=== PATIENT | female | born 1980 | race Caucasian/White ===

== ENCOUNTER → 2023-01-23 09:27 | Outpatient (BNVA) | payer MEDICAID, SELFPAY | PROVIDERS: PCP Family Medicine; Visit Provider Family Medicine | DX: R10.9 Unspecified abdominal pain (principal); F41.9 Anxiety disorder, unspecified; R20.3 Hyperesthesia; F17.200 Nicotine dependence, unspecified, uncomplicated; Z71.6 Tobacco abuse counseling; F12.90 Cannabis use, unspecified, uncomplicated | CPT/HCPCS: 80053; 80061; 81000; 84439; 84443; 85025 ==

== ENCOUNTER 2023-02-26 12:58 | Outpatient (CLI) | payer MEDICAID, SELFPAY ==
--- NOTE | 2023-02-26 13:00 | US_ITS ---
WS: [id number] Gallbladder right upper quadrant ultrasound, 02/26/2023 Clinical Data: RUQ pain, elevated ALK Comparison: None. Findings: The gallbladder shows no sludge or stone. The wall measures 0.3 cm with no pericholecystic fluid. The common bile duct is 0.3 cm and there are no intrahepatic ductal abnormalities. Liver shows no cysts, masses or dilated intrahepatic ducts. The pancreas is not obscured by overlying bowel gas and no cyst, pseudocyst, or evidence of pancreati tis is noted. Right kidney measures 9.9 cm and no cyst, masses or hydronephrosis can be seen. The aorta and inferior vena cava show no vascular abnormalities. US/US gall bladder [id number] Impression: Negative gallbladder and right upper quadrant ultrasound.
== END 2023-02-26 12:59 | disposition home or self-care (01) ==
LOC: RAD 13:03
PROVIDERS: PCP Family Medicine; Visit Provider Family Medicine
DX: R10.9 Unspecified abdominal pain (principal)
CPT/HCPCS: 76705

== ENCOUNTER 2024-12-23 13:29 | Outpatient (CLI) | payer MEDICAID, SELFPAY ==
--- NOTE | 2024-12-23 13:30 | MM_ITS ---
WS: [id number] BILATERAL 3D TOMOSYNTHESIS DIGITAL DIAGNOSTIC MAMMOGRAPHY WITH CAD CLINICAL INFORMATION: breats pain and mass on RIGHT side HISTORY: RIGHT breast lump COMPARISON: Baseline TECHNIQUE: Bilateral CC, MLO, and ML views. FINDINGS: The breasts are composed of heterogeneous fibroglandular density, which can limit the detection of small underlying mass lesions. Palpable marker upper outer RIGHT breast posteriorly. Dense underlying parenchymal tissue. Suggestion of an underlying ovoid nodule measuring 8 mm. Ultrasound of this area is pending. ULTRASOUND BREAST RIGHT TECHNIQUE: Ultrasound right breast focused area of concern. CLINICAL INFORMATION: breats pain and mass on RIGHT side FINDINGS: Ultrasound RIGHT breast in the area of concern 9 o'clock position 4 cm from the nipple. There is a complex cystic lesion in the area of concern measuring approximately 1.0 x 0.6 x 1.0 cm with a few internal septations and a small amount of internal debris. Small amount of surrounding capsular thickening. No internal vascularity. This is probably benign. Recommend 6-month follow-up to confirm stability. MM/MM diag tomosynthesis [id number] IMPRESSION: DENSITY: The breasts are heterogeneously dense, which may obscure small masses. BI-RADS: 3 - Probably Benign FOLLOW UP: 6 Month Follow-up Recommend 6-month RIGHT breast diagnostic mammography and ultrasound.
--- NOTE | 2024-12-23 13:35 | US_ITS ---
WS: [id number] BILATERAL 3D TOMOSYNTHESIS DIGITAL DIAGNOSTIC MAMMOGRAPHY WITH CAD CLINICAL INFORMATION: breats pain and mass on RIGHT side HISTORY: RIGHT breast lump COMPARISON: Baseline TECHNIQUE: Bilateral CC, MLO, and ML views. FINDINGS: The breasts are composed of heterogeneous fibroglandular density, which can limit the detection of small underlying mass lesions. Palpable marker upper outer RIGHT breast posteriorly. Dense underlying parenchymal tissue. Suggestion of an underlying ovoid nodule measuring 8 mm. Ultrasound of this area is pending. ULTRASOUND BREAST RIGHT TECHNIQUE: Ultrasound right breast focused area of concern. CLINICAL INFORMATION: breats pain and mass on RIGHT side FINDINGS: Ultrasound RIGHT breast in the area of concern 9 o'clock position 4 cm from the nipple. There is a complex cystic lesion in the area of concern measuring approximately 1.0 x 0.6 x 1.0 cm with a few internal septations and a small amount of internal debris. Small amount of surrounding capsular thickening. No internal vascularity. This is probably benign. Recommend 6-month follow-up to confirm stability. US/US breast RT limited* [id number] IMPRESSION: DENSITY: The breasts are heterogeneously dense, which may obscure small masses. BI-RADS: 3 - Probably Benign FOLLOW UP: 6 Month Follow-up Recommend 6-month RIGHT breast diagnostic mammography and ultrasound.
== END 2024-12-23 13:30 | disposition home or self-care (01) ==
LOC: RAD 13:29
PROVIDERS: PCP Family Medicine; Visit Provider Family Medicine
DX: N64.4 Mastodynia (principal); N63.10 Unspecified lump in the right breast, unspecified quadrant; R92.331 Mammographic heterogeneous density, right breast; N63.15 Unspecified lump in the right breast, overlapping quadrants
CPT/HCPCS: 76642; 77062; G0279

== ENCOUNTER 2025-06-23 08:15 | Outpatient (CLI) | payer MEDICAID, SELFPAY ==
--- NOTE | 2025-06-23 08:23 | US_ITS ---
WS: [id number] RIGHT 3D TOMOSYNTHESIS DIGITAL MAMMOGRAPHY WITH CAD CLINICAL INFORMATION: breast mass HISTORY: 6-month follow-up RIGHT breast lump COMPARISON: 12/23/2024 TECHNIQUE: 3 views of the right breast were obtained. FINDINGS: The right breast is composed of heterogeneous fibroglandular density tissue, which can limit the detection of small underlying mass lesions. Palpable marker upper outer RIGHT breast posteriorly. Dense underlying parenchymal tissue. Similar-appearing ovoid nodule measuring 8 mm. Ultrasound described below. ULTRASOUND BREAST RIGHT TECHNIQUE: Ultrasound right breast focused area of concern. CLINICAL INFORMATION: breast mass FINDINGS: Ultrasound RIGHT breast in the area of concern 9 o'clock position 4 cm from the nipple. Persistent hypoechoic ovoid nodule with more internal echogenicity today. This may represent a dense complex semisolid cyst or fibroadenoma in a patient this age. Recommend further evaluation with ultrasound-guided biopsy for definitive diagnosis considering persistence. Today this measures approximately 8 x 8 x 5 mm US/US breast RT limited* [id number] IMPRESSION: DENSITY: The breasts are heterogeneously dense, which may obscure small masses. BI-RADS: 4 - Suspicious Finding - Biopsy Should Be Considered FOLLOW UP: US Guided Biopsy Recommended Recommend ultrasound-guided biopsy of the persistent ovoid nodule for definitiv e diagnosis considering persistence and used for palpable nature.
--- NOTE | 2025-06-23 08:30 | MM_ITS ---
WS: [id number] RIGHT 3D TOMOSYNTHESIS DIGITAL MAMMOGRAPHY WITH CAD CLINICAL INFORMATION: breast mass HISTORY: 6-month follow-up RIGHT breast lump COMPARISON: 12/23/2024 TECHNIQUE: 3 views of the right breast were obtained. FINDINGS: The right breast is composed of heterogeneous fibroglandular density tissue, which can limit the detection of small underlying mass lesions. Palpable marker upper outer RIGHT breast posteriorly. Dense underlying parenchymal tissue. Similar-appearing ovoid nodule measuring 8 mm. Ultrasound described below. ULTRASOUND BREAST RIGHT TECHNIQUE: Ultrasound right breast focused area of concern. CLINICAL INFORMATION: breast mass FINDINGS: Ultrasound RIGHT breast in the area of concern 9 o'clock position 4 cm from the nipple. Persistent hypoechoic ovoid nodule with more internal echogenicity today. This may represent a dense complex semisolid cyst or fibroadenoma in a patient this age. Recommend further evaluation with ultrasound-guided biopsy for definitive diagnosis considering persistence. Today this measures approximately 8 x 8 x 5 mm MM/MM diag RT tomosynthesis [id number] IMPRESSION: DENSITY: The breasts are heterogeneously dense, which may obscure small masses. BI-RADS: 4 - Suspicious Finding - Biopsy Should Be Considered FOLLOW UP: US Guided Biopsy Recommended Recommend ultrasound-guided biopsy of the persistent ovoid nodule for definitiv e diagnosis considering persistence and used for palpable nature.
== END 2025-06-23 08:16 | disposition home or self-care (01) ==
LOC: RAD 08:17
PROVIDERS: PCP Family Medicine; Visit Provider Family Medicine
DX: N63.11 Unspecified lump in the right breast, upper outer quadrant (principal); R92.333 Mammographic heterogeneous density, bilateral breasts
CPT/HCPCS: 76642; 77061; G0279

== ENCOUNTER 2025-06-24 06:19 | Emergency (ER) | payer MEDICAID, SELFPAY ==
[2025-06-24 06:22] VITALS: BP 147/85; PULSE 87; RESP 19; TEMP 36.5; O2SAT 96; BMI 25.7
--- NOTE | 2025-06-24 06:22 | ECG_ITS ---
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 Measurements Intervals [place] Rate: 87 P: 78 MT: 120 QRS: 78 QRSD: 85 T: 64 QT: 361 QTc: 437 Interpretive Statements SINUS RHYTHM WITH SINUS ARRHYTHMIA No previous ECG available for comparison Electronically Signed On 06-24-2025 22:39:35 CDT by Frankie Harper M.D. [id number]
--- NOTE | 2025-06-24 06:53 | XR_ITS ---
WS: [id number] Exam: XR chest 1V portable [id number] Date/Time of Exam: 06/24/2025 6:59 AM Reason For Exam: chest pain No priors. Subsegmental atelectasis along the region of the lingula. The lungs are otherwise clear. No pneumothorax. No pleural effusion. Normal cardiomediastinal silhouette. Bony structures are intact. XR/XR chest 1V portable [id number] IMPRESSION: 1. Subsegmental atelectasis in the region of the lingula. 2. No acute process noted.
[2025-06-24 06:54] VITALS: PULSE 72; RESP 21; O2SAT 96
[2025-06-24 06:59] LABS: Hematocrit 43.3 % (36-47); Hemoglobin 14.80 g/dL (11.27-16.99); Mean Corpuscular HGB Conc 34.2 g/dL (30-55); Mean Corpuscular Hemoglobin 32.7 pg (27-33); Mean Corpuscular Volume 95.6 fl (85-98); Nucleated Red Blood Cells % 0 %; Platelet Count 294 10^3/cmm (157-399); Red Blood Count 4.53 10^6/uL (3.85-5.65); White Blood Count 17.53 10^3/uL (3.29-11.43)
--- NOTE | 2025-06-24 07:03 | W.ED.CHESTPA ---
HPI - Chest Pain General: Chief Complaint: Chest Pain Stated Complaint: cp / sob Time Seen by Provider: 06/24/25 06:52 History of Present Illness: 45-year-old female presents emergency room complaint of left-sided chest pain is worse when she takes a deep breath. She describes the stabbing sensation between her clavicle and her scapula. When she presses on the left side of her lower ribs she is able to alleviate some of the pain as she takes a deep breath. Is not associated with exertion. She recently has had a nonproductive cough. No vomiting no diarrhea no abdominal pain Associated symptoms: Reports dyspnea; Deny abdominal pain or fever(s) Related Data Home Medications ?Medication ?Instructions ?Recorded ?Confirmed cetirizine 10 mg capsule (Zyrtec) 10 mg PO DAILY PRN allergies 01/23/23 06/24/25 pseudoephedrine HCl 15 mg/5 mL 30 mg PO Q4H PRN Congestion 06/24/25 06/24/25 oral liquid venlafaxine 75 mg capsule,extended 75 mg PO QAM 06/24/25 06/24/25 release 24 hr Previous Rx's ?Medication ?Instructions ?Recorded diclofenac sodium 75 mg 75 mg PO Q12H PRN pain #20 tabs 06/24/25 tablet,delayed release doxycycline hyclate 100 mg capsule 100 mg PO BID 10 days #20 caps 06/24/25 Allergies Allergy/AdvReac Type Severity Reaction Status Date / Time No Known Allergies Allergy Verified 04/07/25 10:10 Review of Systems Const: Denies: fever(s) or chills Card: Reports: chest pain Resp: Reports: dyspnea, non-productive cough and pain on inspiration GI: Denies: abdominal pain : Denies: dysuria, urinary frequency or urinary urgency Musc: Denies: neck pain or back pain Skin/Breast: Denies: rash PFSH ED PFSH: Medical History URI with cough and congestion Seasonal allergies Anxiety History of spinal fracture C4-5 Encounter for Essure implantation Placed in 2011 Family History Father Cancer esophageal Grandmother Cancer maternal-colon Grandfather Cancer maternal-prostate Grandfather Cancer paternal-skin Other Diabetes Hypertension Lung disease Psychiatric illness Denies family history of CAD (coronary artery disease) Clotting disorder Dementia Hyperlipidemia Chronic kidney disease (CKD) Anesthesia complication Bleeding disorder Stroke Social History Smoking and tobacco/nicotine status: current every day tobacco/nicotine user cigarettes Packs smoked per day: 1 Alcohol intake: current Alcohol intake frequency: few times a week Substance/Drug Use: current Substance/Drug use frequency: daily Other substance/drug use details: a few hits/day. Lives independently: Yes Marital status: Number of children: 4 Current occupational status: employed Current occupation: self employed Special kristian needs: No Agree to transfusion: Yes Physical Exam Const: GENERAL APPEARANCE: cooperative ORIENTATION/CONSCIOUSNESS: Yes awake, Yes oriented to person, Yes oriented to place and Yes oriented to time HENMT: COMMON NORMALS: normocephalic, atraumatic and hearing grossly normal bilaterally HEAD & SCALP: normocephalic and atraumatic Resp: COMMON NORMALS: normal respiratory effort, No retractions, No use of accessory muscles and clear to auscultation bilaterally AUSCULTATION: clear to auscultation bilaterally Cardio: COMMON NORMALS: regular rate, regular rhythm and No murmurs present (Cardio) RATE: regular rate RHYTHM: regular rhythm GI: COMMON NORMALS: Soft to palpation and No hepatosplenomegaly present AUSCULTATION: Yes normoactive bowel sounds PALPATION: Yes Soft to palpation, No Tenderness to palpation present (GI), No Guarding due to palpation present (GI) and Yes No hepatosplenomegaly present Extremity: COMMON NORMALS: normal to inspection, capillary refill normal, no clubbing, cyanosis or edema, no calf tenderness and no pedal edema Neuro: SENSORIUM/ORIENTATION: Yes oriented to person, Yes oriented to place and Yes oriented to time Skin: COMMON NORMALS: no rashes or lesions noted GENERAL SKIN EXAM: no rashes or lesions noted Course Vital Signs: Vital signs: Vital Signs Temperature 97.7 F 06/24/25 06:22 Pulse Rate 64 06/24/25 08:22 Respiratory Rate 21 H 06/24/25 06:54 Blood Pressure 148/87 06/24/25 07:28 Pulse Oximetry 97 06/24/25 08:22 Oxygen Delivery Me thod Room Air 06/24/25 08:22 MDM - Chest Pain Medical Decision Making Pain relieved with Toradol. Chest x-ray questionable atelectasis suspected may be a pneumonia based on her clinical presenting symptoms we will go ahead and put her on doxycycline also give her diclofenac to use as needed she says her pain is completely resolved now cardiac enzymes and EKG were unremarkable. Medical Records I reviewed the patient's medical records. Lab Data I reviewed the patient's lab results. 06/24/25 06:30 06/24/25 06:30 Radiology Impressions Chest X-Ray 06/24/25 06:53 IMPRESSION: 1. Subsegmental atelectasis in the region of the lingula. 2. No acute process noted. Laboratory Results WBC 17.53 10^3/uL (3.29-11.43) H 06/24/25 06:30 RBC 4.53 10^6/uL (3.85-5.65) 06/24/25 06:30 Hgb 14.80 g/dL (11.27-16.99) 06/24/25 06:30 Hct 43.3 % (36-47) 06/24/25 06:30 MCV 95.6 fl (85-98) 06/24/25 06:30 MCH 32.7 pg (27-33) 06/24/25 06:30 MCHC 34.2 g/dL (30-55) 06/24/25 06:30 RDW 12.9 % (12.1-15.1) 06/24/25 06:30 Plt Count 294 10^3/cmm (157-399) 06/24/25 06:30 MPV 9.1 fL (7.4-10.4) 06/24/25 06:30 Neut % (Auto) 76.8 % 06/24/25 06:30 Lymph % (Auto) 15.1 % 06/24/25 06:30 [place] % (Auto) 6.2 % 06/24/25 06:30 Eos % (Auto) 1.0 % 06/24/25 06:30 Baso % (Auto) 0.5 % 06/24/25 06:30 Neut # (Auto) 13.48 10^3/uL (1.8-7.7) H 06/24/25 06:30 Lymph # (Auto) 2.6 10^3/uL (0.8-4.8) 06/24/25 06:30 [place] # (Auto) 1.1 10^3/uL (0.2-0.9) H 06/24/25 06:30 Eos # (Auto) 0.2 10^3/uL (0.0-0.8) 06/24/25 06:30 Baso # (Auto) 0.1 10^3/uL (0.0-0.1) 06/24/25 06:30 Nucleated RBC % (auto) 0 % 06/24/25 06:30 Nucleated RBCs # 0.0 /100WBC 06/24/25 06:30 Sodium 139 mmol/L (136-145) 06/24/25 06:30 Potassium 3.6 mmol/L (3.5-5.1) 06/24/25 06:30 Chloride 104 mmol/L (98-107) 06/24/25 06:30 Carbon Dioxide 22 mmol/L (22-29) 06/24/25 06:30 Anion Gap 16.6 (5-19) 06/24/25 06:30 BUN 9 mg/dL (6-20) 06/24/25 06:30 Creatinine 0.6 mg/dL (0.5-0.9) 06/24/25 06:30 GFR Calculation 109.1 mL/min (90-130) 06/24/25 06:30 Glucose 94 mg/dL (65-115) 06/24/25 06:30 Calculated Osmolality 286 mOsm/kg (285-295) 06/24/25 06:30 Calcium 8.8 mg/dL (8.5-10.5) 06/24/25 06:30 Total Bilirubin 0.4 mg/dL (0.15-1.2) 06/24/25 06:30 AST 16 U/L (0-32) 06/24/25 06:30 ALT 15 U/L (0-33) 06/24/25 06:30 Alkaline Phosphatase 81 U/L (35-105) 06/24/25 06:30 Troponin T Baseline < 6 ng/L (0-10) 06/24/25 06:30 Troponin T 120 Minute < 6.0 ng/L (0-10) 06/24/25 08:38 Delta Troponin T 0 ABS# (0-10) 06/24/25 08:38 Total Protein 7.5 g/dL (6.6-8.7) 06/24/25 06:30 Albumin 4.2 g/dL (3.5-5.2) 06/24/25 06:30 Globulin 3.3 g/dL (1.3-4.6) 06/24/25 06:30 All radiology interpretation(s) finalized by discharge EKG Data EKG 1: Interpretation: EKG 06/24/2025 6:22 AM sinus rhythm. Rate of 87 WA interval 120 QTc [address] changes are noted. No previous EKGs for comparison EKG 2: Interpretation: EKG 06/24/2025 8:01 AM sinus rhythm no acute ST changes noted rate of 62 WA interval 126 QTc 421 compared to EKG done previous same day no significant change Discharge Plan Discharge Patient Disposition: Home Clinical Impression: Pneumonia, Pleuritic chest pain Condition: Stable Prescriptions: New doxycycline hyclate 100 mg capsule 100 mg PO BID 10 Days Qty: 20 0RF diclofenac sodium 75 mg tablet,delayed release (DR/EC) 75 mg PO Q12H PRN (Reason: pain) Qty: 20 0RF No Action Zyrtec 10 mg capsule 10 mg PO DAILY PRN (Reason: allergies) pseudoephedrine HCl 15 mg/5 mL Liquid 30 mg PO Q4H PRN (Reason: Congestion) Rx Instructions: DNExceed 4 doses/24h venlafaxine 75 mg capsule,extended release 24hr 75 mg PO QAM Discharge Orders: Discharge ED (Routine); Ordered 06/24/25 Ordered By: Alin Jeter Referrals: Ezra Brandon MD [Primary Care Provider, [facility]] Discharge Diet: Usual diet Discharge Activity: Increase activity as tolerated Patient Instructions: Opioid Safety, Pain Management, Patient Portal & Kel Instructions Activity Restrictions/Additional Instructions: Thank you for choosing [facility] for your healthcare needs today. It is very important that you follow up as instructed or that you return to the Emergency Department should you have concerns or if your condition changes or worsens in any way. Emergency department visits are focused on emergent conditions, in some cases you may require further evaluation on an outpatient basis. You were seen in the emergency room with left-sided chest pain. Your pains character is a very consistent with pleuritic chest discomfort. Worse when you take a deep breath worse with positioning changes your cardiac enzymes and EKG did not show anything acute. Chest x-ray showed area suspicious at the base left lung for pneumonia we will start you on an oral antibiotic and give you anti-inflammatory to use. Follow-up with your primary care doctor (Please note that included in your discharge packet is information concerning opioid safety and pain management. This information is given to all patients were discharged from the ER regardless of their discharge diagnosis or the medicines they usually take or are prescribed.) Print Language: Armenian Coding Level of Care Code ED Ripsaw Operator for Genesis Wilder
[2025-06-24 07:09] VITALS: BP 148/87; PULSE 71; O2SAT 95
[2025-06-24 07:10] LABS: Alanine Aminotransferase 15 U/L (0-33); Albumin Level 4.2 g/dL (3.5-5.2); Alkaline Phosphatase 81 U/L (35-105); Anion Gap 16.6 (5-19); Aspartate Amino Transferase 16 U/L (0-32); Blood Urea Nitrogen 9 mg/dL (6-20); Calcium 8.8 mg/dL (8.5-10.5); Carbon Dioxide 22 mmol/L (22-29); Chloride 104 mmol/L (98-107); Creatinine Clr Calc Pharmacy 114.5818; Globulin 3.3 g/dL (1.3-4.6); Glucose 94 mg/dL (65-115); Osmolality Calculated 286 mOsm/kg (285-295); Potassium 3.6 mmol/L (3.5-5.1); Sodium 139 mmol/L (136-145); Total Protein 7.5 g/dL (6.6-8.7)
[2025-06-24 07:28] VITALS: BP 148/87; PULSE 67; O2SAT 95
--- NOTE | 2025-06-24 07:37 | ECG_ITS ---
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 Measurements Intervals [place] Rate: 62 P: 44 TN: 126 QRS: 48 QRSD: 86 T: 46 QT: 414 QTc: 421 Interpretive Statements SINUS RHYTHM No previous ECG available for comparison Electronically Signed On 06-24-2025 22:39:24 CDT by Frankie Harper M.D. [email or web address]
[2025-06-24 07:53] LABS: Troponin(5th) Baseline < 6 ng/L (0-10)
[2025-06-24 08:22] VITALS: PULSE 64; O2SAT 97
[2025-06-24 09:03] LABS: Troponin 5 2HR < 6.0 ng/L (0-10); Troponin 5 2HR Delta 0 ABS# (0-10)
[2025-06-24 09:45] VITALS: BP 128/76; PULSE 74; O2SAT 98
== END 2025-06-24 09:45 | disposition home or self-care (01) ==
PROVIDERS: Emergency Provider Family Medicine; PCP Family Medicine
DX: J18.9 Pneumonia, unspecified organism (principal); R07.81 Pleurodynia; F17.210 Nicotine dependence, cigarettes, uncomplicated
CPT/HCPCS: 36415; 71045; 80053; 84484; 85025; 93005; 96374; 99285; J1885

== ENCOUNTER 2025-07-13 13:30 | Outpatient (CLI) | payer MEDICAID, SELFPAY | END 2025-07-13 13:31 | disposition home or self-care (01) | LOC: RAD 13:31 | PROVIDERS: PCP Family Medicine; Visit Provider Family Medicine | DX: R92.8 Other abnormal and inconclusive findings on diagnostic imaging of breast (principal); N60.31 Fibrosclerosis of right breast; D24.1 Benign neoplasm of right breast; R92.0 Mammographic microcalcification found on diagnostic imaging of breast; M79.89 Other specified soft tissue disorders | CPT/HCPCS: 19083; 88305 ==